=== PATIENT | female | born 1935 | race Caucasian/White ===

== ENCOUNTER → 2016-07-30 | Outpatient (CLI) | payer OTHER | LOC: GMAM 12:56 | PROVIDERS: ATTEND Family Medicine | DX: N39.0 Urinary tract infection, site not specified (principal) ==

== ENCOUNTER → 2016-07-30 | Outpatient (CLI) | payer OTHER | LOC: GMAM 11:03 | PROVIDERS: ATTEND Family Medicine | DX: E03.9 Hypothyroidism, unspecified (principal); I10 Essential (primary) hypertension ==

== ENCOUNTER 2016-10-12 18:23 | Emergency (ER) | payer OTHER ==
--- NOTE | 2016-10-12 19:25 | RAD ---
Procedure: XR CHEST 2 VIEWS Exam Date: 10/12/2016 Ordering Provider: Moshe Gabriel Clinical Indication: cough,fever Comparison: 03/20/2014 Findings: Residuals of thoracic surgery. The heart is not enlarged. Pulmonary vasculature is normal. Mediastinal contour is normal. Aortic contour is normal. Patchy opacities in the right upper and middle lobes may represent developing pneumonia. No pleural effusion. There is no pneumothorax. There is no acute bony or soft tissue abnormality. Postsurgical changes in the right humerus. Impression: 1. Patchy opacities in the right upper and middle lobes may represent developing pneumonia. Recommend follow-up chest radiographs in 6-8 weeks to document resolution. Electronically signed by: William Lowe MD 10/12/2016 7:24 PM CDT
[2016-10-12] MEDS ORDERED: IBUPROFEN 200 MG TAB PO ONE (19:28)
--- NOTE | 2016-10-12 20:08 | ED.PDOC ---
History of Present Illness - General Chief Complaint: Fever Stated Complaint: fever,cough Time Seen by Provider: 10/12/16 19:27 Source: patient Exam Limitations: no limitations - History of Present Illness Initial Comments: Ms. Jaylyn Becerra 81 y/o female with history of cad stated that she had productive cough 4 1/2 days ago which had been going on on and off then she started having fever dizziness today seen by her primary md flu,ua,strep test was done at the clinic result forwarded were all negative and was told to come here for evaluation further. Timing/Duration: other - 4 days ago Severity: moderate Improving Factors: nothing Worsening Factors: nothing Associated Symptoms: denies symptoms, cough, loss of appetite Allergies/Adverse Reactions: Allergies NO KNOWN ALLERGY Allergy (Verified 08/16/12 08:03) Home Medications: Ambulatory Orders Aspirin [(None)] 81 mg PO DAILY 03/20/14 Esomeprazole Magnesium [Nexium] 40 mg PO DAILY 03/20/14 Lisinopril 20 mg PO DAILY 03/20/14 Albuterol Inhaler [Ventolin Hfa Inhaler] 108 mcg IN QID PRN #1 inh 10/12/16 Calcium Carbonate-Cholecalcife [Caltrate 600+D] 1 chw PO DAILY 10/12/16 Cefuroxime Axetil [Ceftin] 500 mg PO BID #14 tab 10/12/16 Coenzyme Q10 (Ubidecarenone) [Co Q-10] 200 mg PO DAILY 10/12/16 Dextromethorphan-Guaifenesin [Mucinex Dm Maximum Streng 60-1200 mg] 1 tab PO BID #30 tab 10/12/16 Doxycycline (Monohydrate) [Doxycycline Monohydrate] 100 mg PO BID #14 cap Fenofibrate 145 mg PO DAILY 10/12/16 Isosorbide Dinitrate 30 mg PO DAILY 10/12/16 Levothyroxine Sodium 50 mcg PO DAILY 10/12/16 Multiple Vitamins W/ Minerals [Centrum Silver] 1 tab PO DAILY 10/12/16 Pravastatin Sodium 40 mg PO DAILY 10/12/16 Review of Systems - Review of Systems Constitutional: States: fever EENTM: States: no symptoms reported Respiratory: States: cough Cardiology: States: no symptoms reported Gastrointestinal/Abdominal: States: no symptoms reported Genitourinary: States: no symptoms reported Musculoskeletal: States: no symptoms reported Skin: States: no symptoms reported Neurological: States: no symptoms reported Endocrine: States: no symptoms reported Hematologic/Lymphatic: States: no symptoms reported Past Medical History (General) - Patient Medical History Hx Cardiac Disorders: Yes Hx Congestive Heart Failure: No Hx Diabetes: No Surgical History: coronary bypass surgery, other - hysterectomy, hemorrhoidectomy bladder mesh urinary - Vaccination History Hx Influenza Vaccination: Yes Hx Pneumococcal Vaccination: Yes - Social History Hx Tobacco Use: No - Activities of Daily Living Patient Lives Alone: No - son Family Medical History - Family History Mother Family History: Unknown Living Status: Hx Cardiac Disease: Yes - multiple family members Hx Family Diabetes: Yes - mom Physical Exam - Physical Exam General Appearance: Alert, No apparent distress Eye Exam: bilateral normal Ears, Nose, Throat: hearing grossly normal, normal ENT inspection Neck: non-tender, full range of motion Respiratory: chest non-tender, no respiratory distress, rales - mild bases Cardiovascular/Chest: normal peripheral pulses, regular rate, rhythm, no edema, no gallop Gastrointestinal/Abdominal: normal bowel sounds, non tender, soft, no organomegaly Back Exam: normal inspection, no CVA tenderness, no vertebral tenderness Extremity: non-tender, normal inspection, no pedal edema Neurologic: no motor/sensory deficits, alert, normal mood/affect, oriented x 3 Lymphatic: no adenopathy Progress - Results/Orders Results/Orders: 10/12/16 20:25 SVN/Updraft Therapy .ONCE 10/13/16 09:00 Updrafts Daily Laboratory Results WBC 8.0 K/mm3 (4.8-10.8) 10/12/16 19:00 RBC 3.82 M/mm3 (4.20-5.40) L 10/12/16 19:00 Hgb 11.2 gm/dL (12.0-16.0) L 10/12/16 19:00 Hct 33.8 % (36.0-47.0) L 10/12/16 19:00 MCV 88.5 fl (81.0-99.0) 10/12/16 19:00 MCH 29.3 pg (27.0-31.0) 10/12/16 19:00 MCHC 33.2 g/dL (33.0-37.0) 10/12/16 19:00 RDW 13.8 % (11.5-14.5) 10/12/16 19:00 Plt Count 178 K/mm3 (130-400) 10/12/16 19:00 MPV 8.3 fl (7.40-10.4) 10/12/16 19:00 Absolute Neuts (auto) 6.00 K/uL (1.8-6.8) 10/12/16 19:00 Absolute Lymphs (auto) 1.10 K/uL (1.0-3.4) 10/12/16 19:00 Absolute Monos (auto) 0.70 K/uL (0.2-0.8) 10/12/16 19:00 Absolute Eos (auto) 0.10 K/uL (0.0-0.4) 10/12/16 19:00 Absolute Basos (auto) 0.10 K/uL (0.0-0.1) 10/12/16 19:00 Neutrophils % 76.1 % (42.0-78.0) 10/12/16 19:00 Lymphocytes % 13.8 % (20.0-50.0) L 10/12/16 19:00 Monocytes % 8.3 % (2.0-9.0) 10/12/16 19:00 Eosinophils % 0.9 % (1.0-5.0) L 10/12/16 19:00 Basophils % 0.9 % (0.0-2.0) 10/12/16 19:00 Sodium 133 mmol/L (135-145) L 10/12/16 19:00 Potassium 3.6 mmol/L (3.6-5.0) 10/12/16 19:00 Chloride 107 mmol/L (101-111) 10/12/16 19:00 Carbon Dioxide 19 mmol/L (21-31) L 10/12/16 19:00 Anion Gap 10.6 (12-18) L 10/12/16 19:00 BUN 15 mg/dL (7-18) 10/12/16 19:00 Creatinine 1.15 mg/dL (0.6-1.3) 10/12/16 19:00 BUN/Creatinine Ratio 13.0 (10-20) 10/12/16 19:00 Random Glucose 113 mg/dL (70-105) H 10/12/16 19:00 Serum Osmolality 268.0 mOsm/L (275-295) L 10/12/16 19:00 Calcium 9.1 mg/dL (8.4-10.2) 10/12/16 19:00 Total Bilirubin 0.7 mg/dL (0.2-1.0) 10/12/16 19:00 AST 27 IU/L (10-42) 10/12/16 19:00 ALT 24 IU/L (10-60) 10/12/16 19:00 Alkaline Phosphatase 41 IU/L (42-121) L 10/12/16 19:00 Serum Total Protein 7.2 gm/dL (6.4-8.2) 10/12/16 19:00 Albumin 3.7 g/dl (3.2-5.5) 10/12/16 19:00 Globulin 3.5 gm/dL (2.3-3.5) 10/12/16 19:00 Albumin/Globulin Ratio 1.1 (1.1-1.9) 10/12/16 19:00 Departure - Departure Clinical Impression: Pneumonia Qualifiers: Pneumonia type: due to unspecified organism Laterality: right Lung location: upper lobe of lung Qualifier Code: (J18.9) Pneumonia, unspecified organism Time of Disposition: 20:42 Disposition: Discharge to Home or Self Care Condition: Good Departure Forms: ED Discharge - Pt. Copy, Patient Portal Self Enrollment Instructions: DI for Pneumonia -- Adult Referrals: Boyd Earl MD [Primary Care Provider] - 1-2 Weeks Prescriptions: Cefuroxime Axetil [Ceftin] 500 mg PO BID #14 tab Doxycycline (Monohydrate) [Doxycycline Monohydrate] 100 mg PO BID #14 cap Dextromethorphan-Guaifenesin [Mucinex Dm Maximum Streng 60-1200 mg] 1 tab PO BID #30 tab Albuterol Inhaler [Ventolin Hfa Inhaler] 108 mcg IN QID PRN #1 inh PRN Reason: Cough Home Medications: Ambulatory Orders Aspirin [(None)] 81 mg PO DAILY 03/20/14 Esomeprazole Magnesium [Nexium] 40 mg PO DAILY 03/20/14 Lisinopril 20 mg PO DAILY 03/20/14 Albuterol Inhaler [Ventolin Hfa Inhaler] 108 mcg IN QID PRN #1 inh 10/12/16 Calcium Carbonate-Cholecalcife [Caltrate 600+D] 1 chw PO DAILY 10/12/16 Cefuroxime Axetil [Ceftin] 500 mg PO BID #14 tab 10/12/16 Coenzyme Q10 (Ubidecarenone) [Co Q-10] 200 mg PO DAILY 10/12/16 Dextromethorphan-Guaifenesin [Mucinex Dm Maximum Streng 60-1200 mg] 1 tab PO BID #30 tab 10/12/16 Doxycycline (Monohydrate) [Doxycycline Monohydrate] 100 mg PO BID #14 cap Fenofibrate 145 mg PO DAILY 10/12/16 Isosorbide Dinitrate 30 mg PO DAILY 10/12/16 Levothyroxine Sodium 50 mcg PO DAILY 10/12/16 Multiple Vitamins W/ Minerals [Centrum Silver] 1 tab PO DAILY 10/12/16 Pravastatin Sodium 40 mg PO DAILY 10/12/16 Additional Instructions: FOLLOW UP WITH PRIMARY MD 10/19/2016
[2016-10-12] MEDS ORDERED: IPRATROPIUM/ALBUTEROL 3 ML VIAL NEB ONE (20:26)
[2016-10-12] MEDS ORDERED: BENZONATATE PERLES 100 MG CAP PO ONE (20:26)
[2016-10-12] MEDS ORDERED: diphenhydrAMINE HCL 25 MG CAP PO ONE (20:26)
[2016-10-12] MEDS ORDERED: cefTRIAXone SODIUM 1 GM VIAL IM ONE (20:32)
[2016-10-12] MEDS ORDERED: DOXYCYCLINE TAB (ER DISPENSE) 100 MG CAP PO ONE (20:33)
[2016-10-12] MEDS ORDERED: LIDOCAINE 1% 10 ML VIAL INJ ONE (20:54)
[2016-10-12 20:57] VITALS: O2SAT 98
[2016-10-12 21:17] VITALS: BP 153/67; TEMP 98.9
== END 2016-10-12 21:17 | disposition home or self-care (01) ==
LOC: ER 18:23
DX: J18.9 Pneumonia, unspecified organism (principal); Z95.1 Presence of aortocoronary bypass graft; Z79.82 Long term (current) use of aspirin; Z79.899 Other long term (current) drug therapy

== ENCOUNTER → 2017-02-07 | Outpatient (CLI) | payer OTHER | END | disposition home or self-care (01) | LOC: GMAM 10:52 | PROVIDERS: ATTEND Family Medicine | DX: E03.9 Hypothyroidism, unspecified (principal) ==

== ENCOUNTER → 2017-02-09 | Outpatient (CLI) | payer OTHER | END | disposition home or self-care (01) | LOC: GMAM 14:34 | PROVIDERS: ATTEND Family Medicine | DX: R30.0 Dysuria (principal) ==

== ENCOUNTER → 2017-07-20 | Outpatient (CLI) | payer OTHER | END | disposition home or self-care (01) | LOC: GMAM 10:34 | PROVIDERS: ATTEND Family Medicine | DX: E03.9 Hypothyroidism, unspecified (principal) ==

== ENCOUNTER → 2018-02-27 | Outpatient (CLI) | payer OTHER | LOC: GMAM 11:17 | PROVIDERS: ATTEND Family Medicine | DX: E03.9 Hypothyroidism, unspecified (principal) ==

== ENCOUNTER → 2018-03-01 | Outpatient (CLI) | payer OTHER | LOC: GMAM 11:36 | PROVIDERS: ATTEND Family Medicine | DX: E53.8 Deficiency of other specified B group vitamins (principal); E83.52 Hypercalcemia; R53.83 Other fatigue ==

== ENCOUNTER → 2018-04-11 | Outpatient (CLI) | payer OTHER | LOC: GMAM 14:44 | PROVIDERS: ATTEND Family Medicine | DX: I10 Essential (primary) hypertension (principal) ==

== ENCOUNTER → 2018-04-18 | Outpatient (CLI) | payer OTHER | LOC: GMAM 14:40 | PROVIDERS: ATTEND Family Medicine | DX: E03.9 Hypothyroidism, unspecified (principal) ==

== ENCOUNTER → 2018-06-30 | Outpatient (CLI) | payer OTHER | LOC: GMAM 11:09 | PROVIDERS: ATTEND Family Medicine | DX: D51.9 Vitamin B12 deficiency anemia, unspecified (principal); E03.9 Hypothyroidism, unspecified; E55.9 Vitamin D deficiency, unspecified ==

== ENCOUNTER → 2018-09-26 | Outpatient (CLI) | payer OTHER ==
--- NOTE | 2018-09-27 08:35 | MRI ---
EXAM DESCRIPTION: Lumbar Spine w/o Contrast : Magnetic Resonance Imaging. CLINICAL HISTORY: SPINAL STENOSIS LUMBAR REGION COMPARISON: None. TECHNIQUE: Multiplanar, multiple standard sequences, non contrast MRI, lumbar spine. FINDINGS: L5-S1: Disc desiccation. Disc space decreased more on the right side with Modic type II endplate reactive changes. Disc spur complex encroaching on the right foramen abutting the exiting right L5 nerve. Right foramen patent. Hypertrophic facet arthrosis and enlarged ligaments with AP canal diameter 1.2 cm. Posterior disc bulge 4 mm with hyperintense T2 signal annular fissure. Disc also bulging below the disc space narrowing and bilateral subarticular recesses. L4-L5: Disc desiccation and disc space loss minimal. Posterior broad-based bulge with mild hypertrophic facet arthrosis and large ligaments impressing on the thecal sac more right than left. Narrowing of the right subarticular recess. AP canal diameter 11 mm. Mild to moderate bilateral foraminal narrowing. Modic type II endplate reactive changes on the left with disc spur complex encroaching on the foramen. L3-L4: Disc desiccation with minimal disc space loss on the left and Modic type II endplate reactive changes. Hypertrophic facet arthrosis with large ligaments and minimal disc bulge with AP canal diameter 10 mm. Moderate left foraminal narrowing and mild right foraminal narrowing. L2-L3: Disc desiccation and disc space loss slightly more on the left. Left side Modic type II endplate reactive changes with minimal narrowing of the left foramen. Right foramen is patent. Minimal anterior disc bulge. Bilateral hypertrophic facet arthrosis and enlarged ligaments impressing on the thecal sac with AP canal diameter 11 mm. L1-L2: Anterior disc bulge with endplate ridging. Tiny posterior disc bulge. Schmorl's node inferior L1 endplate. Hyperintense circumscribed T1 and T2 signal abutting the inferior L1 endplate. Mild hypertrophic facet arthrosis and enlarged ligaments more on the left. AP canal diameter 12 mm. T12-L1: Minimal desiccation of the disc with disc space preserved. Tiny posterior bulge. Posterior elements unremarkable. Canal and foramina are patent. Conus terminates at this level. Anterior Modic type II endplate reactive changes at T11-T12 with disc bulge and anterior endplate spurs. No significant posterior bulge with no significant narrowing of the canal or foramina. L1-L4 dextroscoliosis. Paravertebral soft tissues Multiple cysts seen in the bilateral kidneys. Paraspinal muscle atrophy.. Normal marrow signal in the remaining vertebral bodies and the posterior elements. Vertebral bodies are not compressed at any level. IMPRESSION: 1. Spondylosis right L5-S1 disc space with disc spur complex causing right foraminal stenosis and possible impingement right L5 nerve. Posterior disc bulge with annular fissure and narrowing of the bilateral subarticular recesses. 2. Posterior broad-based disc bulge L4-L5 with moderate canal narrowing. Moderate spondylosis on the left encroaching on the foramen. 3. Multifactorial borderline mild central canal stenosis at L3-L4 with left side moderate spondylosis. 4. Left side moderate spondylosis at L2-L3 with moderate canal narrowing due to posterior elements. Electronically signed by: Nghia Ugarte MD 09/27/2018 8:32 AM CDT
== END ==
LOC: MRI 10:52
PROVIDERS: ATTEND Family Medicine
DX: M48.07 Spinal stenosis, lumbosacral region (principal); M47.897 Other spondylosis, lumbosacral region; M51.87 Other intervertebral disc disorders, lumbosacral region

== ENCOUNTER → 2019-02-05 | Outpatient (CLI) | payer OTHER | LOC: GMAM 10:23 | PROVIDERS: ATTEND Family Medicine | DX: D51.9 Vitamin B12 deficiency anemia, unspecified (principal); E03.9 Hypothyroidism, unspecified; E55.9 Vitamin D deficiency, unspecified; I10 Essential (primary) hypertension ==

== ENCOUNTER → 2019-07-25 | Outpatient (CLI) | payer OTHER ==
--- NOTE | 2019-07-26 08:35 | MRI ---
EXAM DESCRIPTION: Lumbar Spine w/o Contrast : Magnetic Resonance Imaging. CLINICAL HISTORY: SPINAL STENOSIS, LUMBOSACRAL REGION COMPARISON: MRI scan lumbar spine without contrast September 2018. TECHNIQUE: Multiplanar, multiple standard sequences, non contrast MRI, lumbar spine. FINDINGS: L5-S1: The disc is well visualized on axial T2 series 501, image 3. This desiccation with disc space loss and moderate endplate reactive changes in the midline to the right of midline. Posterior broad-based bulge in the midline into the left of midline abutting the descending left S1 nerve. Degenerative hypertrophy of the posterior elements: Facet joints and flavum ligament. AP canal diameter 11 mm. Right side disc spur complex encroaching on the foramen and the right L5 nerve with foraminal stenosis. Mild left foraminal narrowing. Stable since the prior study. L4-L5: Disc desiccation with anterior and posterior bulging and anterior endplate ridging. Schmorl's node inferior L4 endplate. Mild disc space loss. Posterior broad-based disc bulge. Degenerative hypertrophy of the posterior elements bilaterally more on the left. AP canal diameter 9.8 mm. Minimal endplate reactive changes to the left of midline with disc-spur complex bulging into the foramen and abutting the left L4 nerve. Mild to moderate narrowing of the right foramen. Stable since the prior study. L3-L4: Disc desiccation and minimal disc space loss. Small posterior and anterior bulge. Moderate degenerative hypertrophy of the posterior elements impressing on the lateral thecal sac with narrowing of the transverse diameter of the canal. AP canal diameter 9.7 mm. Schmorl's nodes in the endplates through the left of midline with moderate endplate reactive changes and disc spur complex abutting the left L3 nerve in the moderately narrowed foramen. Mild narrowing of the right foramen. No change from the prior study. L2-L3: Disc desiccation and posterior disc space loss. Anterior bulging and endplate ridging. Mild posterior bulging. Degenerative hypertrophy of the posterior elements impressing on the lateral thecal sac. AP canal diameter 10 mm. Bilateral mild foraminal narrowing. L1-L2: Disc desiccation with posterior disc space narrowing minimal anterior bulging with endplate ridging. Minimal posterior bulging. Mild degenerative hypertrophy posterior elements impressing on the lateral thecal sac. AP canal diameter 11 mm. Schmorl's nodes inferior L1 endplate. Bilateral foramina are patent. T12-L1: Disc desiccation anterior bilateral endplate ridging no posterior anterior bulging with disc space preserved. Minimal degenerative hypertrophy of the posterior elements. Mild canal narrowing. Conus terminates at this level. Bilateral foramina are patent. L2-L4 levoscoliosis. Paravertebral soft tissues bilateral renal cysts. Paraspinal muscle atrophy.. Distal cord normal signal and caliber. Otherwise normal marrow signal in the remaining vertebral bodies and the posterior elements. Vertebral bodies are not compressed at any level. IMPRESSION: 1. Multiple levels of disc degeneration and bulging, spondylosis, hypertrophy of the facet joints and posterior flavum ligaments. 2. L5-S1 right side spondylosis with right foraminal stenosis and disc spur encroachment on the right L5 nerve. Left posterior bulge of the disc in the canal abutting the descending left S1 nerve. Stable since the prior study. 3. Multifactorial borderline mild central canal stenosis at L4-L5. Left side spondylosis encroaching on the foramen and abutting the left L4 nerve. No change from the prior study. 4. Multifactorial borderline mild central canal stenosis at L3-L4. Left side spondylosis encroaching on the foramen and abutting the left L3 nerve. Stable since the prior study. 5. Borderline mild central canal stenosis at L2-L3 caused by hypertrophic degeneration of the posterior elements. No change from the prior study. Electronically signed by: Nghia Ugarte MD 07/26/2019 8:33 AM [employer]
== END ==
LOC: MRI 08:58
PROVIDERS: ATTEND Family Medicine
DX: M48.07 Spinal stenosis, lumbosacral region (principal); M48.061 Spinal stenosis, lumbar region without neurogenic claudication; M51.36 Other intervertebral disc degeneration, lumbar region; M51.86 Other intervertebral disc disorders, lumbar region; M47.896 Other spondylosis, lumbar region; M47.897 Other spondylosis, lumbosacral region

== ENCOUNTER → 2019-11-15 | Outpatient (CLI) | payer OTHER | LOC: GMAM 11:15 | PROVIDERS: ATTEND Family Medicine | DX: D51.9 Vitamin B12 deficiency anemia, unspecified (principal); E03.9 Hypothyroidism, unspecified; E55.9 Vitamin D deficiency, unspecified; I10 Essential (primary) hypertension; E78.2 Mixed hyperlipidemia ==